=== PATIENT | female | born 1965 | race Caucasian/White ===

== ENCOUNTER 2018-08-24 05:54 | Day surgery (SDC) | payer OTHER ==
[2018-08-24] MEDS ORDERED: ACETAMINOPHEN 500 MG TAB PO (07:30)
[2018-08-24] MEDS ORDERED: CEFAZOLIN 2 GM/50 ML (PMX) 50 ML IVPB (09:00)
[2018-08-24] MEDS ORDERED: SOD CHLORIDE 0.9% 1,000 ML IV (09:00)
== END 2018-08-24 12:02 | disposition home or self-care (01) ==
LOC: SDS 05:54
DX: C50.911 Malignant neoplasm of unspecified site of right female breast (principal); Z53.8 Procedure and treatment not carried out for other reasons
CPT/HCPCS: 71045; 93005

== ENCOUNTER 2018-09-07 07:09 | Day surgery (SDC) | payer OTHER ==
[~2018-09-07 07:09] MED LIST: EPHEDrine SULFATE 50 MG/5 ML SYG; PHENYLephrine (100 MCG/ML) 5ML SYG
[2018-09-07] MEDS ORDERED: SOD CHLORIDE 0.9% 1,000 ML IV (09:00)
[2018-09-07] MEDS ORDERED: CEFAZOLIN 2 GM/50 ML (PMX) 50 ML IVPB (09:00)
[2018-09-07] MEDS: ACETAMINOPHEN 500 MG TAB PO (12:23)
[2018-09-07] MEDS ORDERED: FENTAnyl 50 MCG/ML VIAL IV ×2 (13:00)
[2018-09-07] MEDS ORDERED: OXYCODONE/ACETAMINOPHEN (5/325) TAB PO (13:00)
[2018-09-07] MEDS ORDERED: LABETALOL HCL 20MG INJ IV (13:00)
[2018-09-07] MEDS ORDERED: HYDROmorphONE 1 MG/5 ML IV SYRINGE IV (13:00)
[2018-09-07] MEDS ORDERED: MEPERIDINE 25 MG INJ IV (13:00)
[2018-09-07] MEDS ORDERED: ALBUTEROL 0.083% (NEB) 2.5 MG/3 ML AMP HHN (13:00)
[2018-09-07] MEDS ORDERED: morphine (1 MG/ML) 10ML SYRINGE IV ×2 (13:00)
[2018-09-07] MEDS ORDERED: ONDANSETRON 4 MG INJ IV (13:00)
[2018-09-07] MEDS ORDERED: DIPHENHYDRAMINE 50 MG INJ IV (13:00)
[2018-09-07] MEDS ORDERED: CEFAZOLIN 1 GM INJ (13:31)
[2018-09-07] MEDS ORDERED: FAMOTIDINE 20 MG INJ (13:31)
[2018-09-07] MEDS ORDERED: PROPOFOL 40 ML (13:31)
[2018-09-07] MEDS ORDERED: LIDOCAINE 2% (SDV) 5 ML INJ (13:31)
[2018-09-07] MEDS ORDERED: FENTAnyl 50 MCG/ML VIAL (13:31)
[2018-09-07] MEDS ORDERED: MIDAZOLAM 1 MG/ML 2 ML INJ (13:31)
[2018-09-07] MEDS ORDERED: ONDANSETRON 4 MG INJ (13:59)
[2018-09-07] MEDS ORDERED: GLYCOPYRROLATE 0.4 MG INJ (14:12)
[2018-09-07] MEDS ORDERED: HYDROCODONE/APAP (7.5/325) TAB PO (15:00)
[2018-09-07] MEDS: HYDROmorphONE 1 MG/5 ML IV SYRINGE IV (15:31)
[2018-09-07] MEDS: OXYCODONE/ACETAMINOPHEN (5/325) TAB PO (17:51)
== END 2018-09-07 17:55 | disposition home or self-care (01) ==
LOC: SDS 07:09
DX: D05.11 Intraductal carcinoma in situ of right breast (principal); I10 Essential (primary) hypertension; E78.5 Hyperlipidemia, unspecified; E03.9 Hypothyroidism, unspecified
CPT/HCPCS: 19301; 88307

== ENCOUNTER 2018-11-02 07:30 | Inpatient (IN) | payer OTHER ==
[2018-11-02] MEDS ORDERED: PROPOFOL 100 ML (10:06)
[2018-11-02] MEDS ORDERED: ROCURONIUM 50 MG INJ (10:06)
[2018-11-02] MEDS ORDERED: morphine 10 MG INJ (10:07)
[2018-11-02] MEDS ORDERED: DEXAMETHASONE 4 MG/ML 5 ML INJ (10:21)
[2018-11-02] MEDS ORDERED: ONDANSETRON 4 MG INJ (10:21)
[2018-11-02] MEDS: CEFAZOLIN 2 GM/50 ML (PMX) 50 ML IVPB (11:30)
[2018-11-02] MEDS: SOD CHLORIDE 0.9% 1,000 ML IV (11:30)
[2018-11-02] MEDS: D5W-0.45 NACL + KCL 20 MEQ 1,000 ML IV ×2 (11:50→19:50)
[2018-11-02] MEDS ORDERED: ONDANSETRON 4 MG INJ IV (12:00)
[2018-11-02] MEDS ORDERED: morphine 2 MG INJ IV (12:00)
[2018-11-02] MEDS ORDERED: MEPERIDINE 25 MG INJ (12:23)
[2018-11-02] MEDS: MEPERIDINE 25 MG INJ IV (12:27)
[2018-11-02] MEDS ORDERED: HYDROmorphONE 1 MG/5 ML IV SYRINGE IV ×3 (12:30)
[2018-11-02] MEDS ORDERED: KETOROLAC 30 MG INJ IV (12:30)
[2018-11-02] MEDS ORDERED: LABETALOL HCL 20MG INJ IV (12:30)
[2018-11-02] MEDS ORDERED: EPHEDrine SULFATE 50 MG/5 ML SYG IV (12:30)
[2018-11-02] MEDS ORDERED: OXYCODONE/ACETAMINOPHEN (5/325) TAB PO ×2 (12:30)
[2018-11-02] MEDS ORDERED: ALBUTEROL 0.083% (NEB) 2.5 MG/3 ML AMP HHN (12:30)
[2018-11-02] MEDS ORDERED: [UNRECOGNIZED DRUG - REMARK] XX (12:30)
[2018-11-02] MEDS ORDERED: METOCLOPRAMIDE 10 MG INJ IV (12:30)
[2018-11-02] MEDS ORDERED: FENTAnyl 50 MCG/ML VIAL IV (12:30)
[2018-11-02] MEDS ORDERED: DIPHENHYDRAMINE 50 MG INJ IV (12:30)
[2018-11-02] MEDS ORDERED: MIDAZOLAM 1 MG/ML 2 ML INJ IV (12:30)
[2018-11-02] MEDS ORDERED: hydrALAzine 20 MG INJ IV ×2 (12:30→17:30)
[2018-11-02] MEDS: ONDANSETRON 4 MG INJ IV (12:33)
[2018-11-02] MEDS: FENTAnyl 50 MCG/ML VIAL IV ×2 (12:33→12:59)
[2018-11-02] MEDS: ACETAMINOPHEN 1000MG/100ML IV 100 ML IVPB (16:51)
[2018-11-02] MEDS: LOSARTAN 50 MG TAB PO (21:00)
[2018-11-02] MEDS: ATORVASTATIN 20 MG TAB PO (21:17)
[2018-11-02] MEDS: CALCIUM/VITAMIN D (500/200) TAB PO (21:17)
[2018-11-02] MEDS: TIMOLOL 0.25% 5 ML OPH BOTH EYES (21:18)
[2018-11-02] MEDS: BRIMONIDINE 0.15% 5 ML OPH BOTH EYES (21:18)
[2018-11-02] MEDS ORDERED: TIMOLOL 0.25% 5 ML OPH BOTH EYES (23:00)
[2018-11-03] MEDS: ACETAMINOPHEN 1000MG/100ML IV 100 ML IVPB ×3 (03:32→10:34)
[2018-11-03 05:11] LABS: ADD MAN DIFF? NO
[2018-11-03 05:20] LABS: WHITE BLOOD COUNT 14.6 10^3/ul (4.8-10.8)
[2018-11-03 05:20] LABS: BASOPHILS % 0.2 % (0.0-2.0); HEMATOCRIT 34.2 % (37.0-47.0); LYMPHOCYTES % 13.3 % (15.0-51.0); MEAN CORPUSCULAR HEMOGLOBIN 27.4 pg (29.0-33.0); MEAN CORPUSCULAR HGB CONC 32.2 g/dl (32.0-37.0); MEAN CORPUSCULAR VOLUME 85.3 fl (82.0-101.0); MEAN PLATELET VOLUME 10.6 fl (7.4-10.4); MONOCYTE # 0.8 10^3/ul (0.3-0.9); MONOCYTES % 5.7 % (0.0-11.0); NEUTROPHIL # 11.8 10^3/ul (1.6-7.5); NEUTROPHILS % 80.3 % (39.0-77.0); PLATELET COUNT 259 10^3/UL (140-415); RED BLOOD COUNT 4.01 10^6/ul (4.20-5.40); RED CELL DISTRIBUTION WIDTH 12.3 % (11.5-14.5)
[2018-11-03 05:31] LABS: ALANINE AMINOTRANSFERASE 20 IU/L (13-69); ALBUMIN 3.6 g/dl (3.3-4.9); ALBUMIN/GLOBULIN RATIO 1.24; ALKALINE PHOSPHATASE 68 IU/L (42-121); ANION GAP 7 (5-13); ASPARTATE AMINO TRANSFERASE 26 IU/L (15-46); BILIRUBIN,INDIRECT 0.4 mg/dl (0-1.1); BILIRUBIN,TOTAL 0.4 mg/dl (0.2-1.3); BLOOD UREA NITROGEN 14 mg/dl (7-20); CALCIUM 9.7 mg/dl (8.4-10.2); CARBON DIOXIDE 26 mmol/L (21-31); CHLORIDE 107 mmol/L (97-110); CREATININE 0.71 mg/dl (0.44-1.00); Estimated GFR > 60 mL/min (>60); GLUCOSE 111 mg/dl (70-220); POTASSIUM 4.1 mmol/L (3.5-5.1); SODIUM 140 mmol/L (135-144); TOTAL PROTEIN 6.5 g/dl (6.1-8.1)
[2018-11-03] MEDS: D5W-0.45 NACL + KCL 20 MEQ 1,000 ML IV ×2 (05:49→14:00)
[2018-11-03] MEDS: LEVOTHYROXINE 50 MCG TAB PO (06:18)
[2018-11-03] MEDS ORDERED: LEVOTHYROXINE 50 MCG TAB PO (07:00)
[2018-11-03] MEDS: TIMOLOL 0.25% 5 ML OPH BOTH EYES ×2 (08:03→21:00)
[2018-11-03] MEDS: BRIMONIDINE 0.15% 5 ML OPH BOTH EYES ×2 (08:04→21:00)
[2018-11-03] MEDS: ASPIRIN (EC) 81 MG TAB PO (08:58)
[2018-11-03] MEDS: NIFEdipine (XL) 60 MG TAB PO (09:03)
[2018-11-03] MEDS: ACETAMINOPHEN 325 MG TAB PO (18:08)
[2018-11-03] MEDS: CALCIUM/VITAMIN D (500/200) TAB PO (20:57)
[2018-11-03] MEDS: ATORVASTATIN 20 MG TAB PO (20:58)
[2018-11-03] MEDS: LOSARTAN 50 MG TAB PO (20:58)
[2018-11-03] MEDS: HYDROCODONE/APAP (5/325) TAB PO (22:17)
[2018-11-04 05:11] LABS: ADD MAN DIFF? NO
[2018-11-04 05:21] LABS: WHITE BLOOD COUNT 8.7 10^3/ul (4.8-10.8)
[2018-11-04 05:21] LABS: BASOPHIL # 0.1 10^3/ul (0.0-0.1); BASOPHILS % 0.8 % (0.0-2.0); EOSINOPHILS # 0.1 10^3/ul (0.0-0.5); EOSINOPHILS % 1.3 % (0.0-7.0); HEMATOCRIT 34.9 % (37.0-47.0); HEMOGLOBIN 11.4 g/dl (12.0-16.0); LYMPHOCYTES % 34.2 % (15.0-51.0); MEAN CORPUSCULAR HEMOGLOBIN 27.8 pg (29.0-33.0); MEAN CORPUSCULAR HGB CONC 32.7 g/dl (32.0-37.0); MEAN CORPUSCULAR VOLUME 85.1 fl (82.0-101.0); MEAN PLATELET VOLUME 10.8 fl (7.4-10.4); MONOCYTE # 0.6 10^3/ul (0.3-0.9); MONOCYTES % 7.1 % (0.0-11.0); NEUTROPHIL # 4.9 10^3/ul (1.6-7.5); NEUTROPHILS % 56.1 % (39.0-77.0); PLATELET COUNT 243 10^3/UL (140-415); RED CELL DISTRIBUTION WIDTH 12.8 % (11.5-14.5)
[2018-11-04 05:42] LABS: ANION GAP 6 (5-13); BLOOD UREA NITROGEN 14 mg/dl (7-20); CALCIUM 9.3 mg/dl (8.4-10.2); CARBON DIOXIDE 29 mmol/L (21-31); CHLORIDE 108 mmol/L (97-110); CREATININE 0.69 mg/dl (0.44-1.00); Estimated GFR > 60 mL/min (>60); GLUCOSE 89 mg/dl (70-220); POTASSIUM 4.1 mmol/L (3.5-5.1); SODIUM 143 mmol/L (135-144)
[2018-11-04] MEDS: LEVOTHYROXINE 50 MCG TAB PO (06:23)
[2018-11-04] MEDS: ASPIRIN (EC) 81 MG TAB PO (06:59)
[2018-11-04] MEDS: NIFEdipine (XL) 60 MG TAB PO (08:43)
[2018-11-04] MEDS: TIMOLOL 0.25% 5 ML OPH BOTH EYES (08:43)
[2018-11-04] MEDS ORDERED: BRIMONIDINE 0.15% 5 ML OPH BOTH EYES (08:47)
[2018-11-04] MEDS: BRIMONIDINE 0.15% 5 ML OPH BOTH EYES (09:00)
[2018-11-04] MEDS: ACETAMINOPHEN 325 MG TAB PO (13:26)
== END 2018-11-04 14:34 | disposition home health service (06) | DRG 581 ==
LOC: REC 07:30 → MS1 13:27
PROC: 0HTV0ZZ Resection of Bilateral Breast, Open Approach (ICD-10-PCS; principal; 2018-11-02 10:00)
PROC: 07B90ZX Excision of Left Internal Mammary Lymphatic, Open Approach, Diagnostic (ICD-10-PCS; 2018-11-02 10:00)
PROC: 07B80ZX Excision of Right Internal Mammary Lymphatic, Open Approach, Diagnostic (ICD-10-PCS; 2018-11-02 10:00)
DX: D05.11 Intraductal carcinoma in situ of right breast (principal); H40.9 Unspecified glaucoma; Z15.01 Genetic susceptibility to malignant neoplasm of breast; I10 Essential (primary) hypertension; E03.9 Hypothyroidism, unspecified
CPT/HCPCS: 71045; 80048; 80053; 84443; 85025; 88307; 93005